=== PATIENT | male | born 1965 | race Caucasian/White ===

== ENCOUNTER → 2024-01-30 06:29 | Day surgery (SDC) | payer OTHER, SELFPAY | LOC: GI 06:29 | PROVIDERS: ATTENDING PHYSICIAN Internal Medicine Gastroenterology | DX: Z12.11 Encounter for screening for malignant neoplasm of colon (principal); K64.8 Other hemorrhoids; K57.30 Diverticulosis of large intestine without perforation or abscess without bleeding; D17.5 Benign lipomatous neoplasm of intra-abdominal organs; D12.8 Benign neoplasm of rectum | CPT/HCPCS: 45385; 88305 ==